=== PATIENT | male | born 1980 | race Caucasian/White ===

== ENCOUNTER 2020-02-27 16:48 | Emergency (ER) | payer MEDICAID, SELFPAY ==
[2020-02-27 16:52] VITALS: BP 153/90; PULSE 70; TEMP 36; O2SAT 98
--- NOTE | 2020-02-27 17:00 | DI.RAD_ITS ---
EXAM: XR FINGER LT RING CLINICAL HISTORY: trauma, laceration TECHNIQUE: COMPARISON: No exams were available for comparison FINDINGS: Three views were obtained. No fracture is seen. IMPRESSION:
--- NOTE | 2020-02-27 17:17 | W.ED.GENAD ---
Discharge Plan Disposition Patient Disposition: HOME Condition: Stable Discharge Details Chief Complaint: Laceration Clinical Impression: Laceration Primary Care Provider: Cass Montano ED Provider: Astrid Aguilar Home Meds and New Rx's Prescriptions: No Action No Known Home Meds RF: 0 Discharge Instructions Instructions: Care For Your Stitches (ED), Laceration (ED) Additional Instructions: Please return immediately to the emergency department if you develop any new or worsening symptoms, if your condition does not improve as expected, or if you become otherwise concerned. It is extremely important that you call soon as possible to make an appointment to be seen in follow-up for this visit by your primary care doctor. You will need to have your stitches removed in 10 days. Referrals: Cass Montano, TRACTOR CRANE OPERATOR [Primary Care Provider] - Discharge Data Discharge Date/Time-TO BE ENTERED AT DEPARTURE: 02/27/20 18:35 Medical Decision Making Henry Aviles is a 39 y/o man who presented to the emergency department with laceration to the left 4th digit. On exam Pt is well and non-toxic appearing. No exposed bone or tendon, flexion and extension intact. Plan for xray for r/o bony injury/FB, laceration repair, tetanus (last tetanus > 5 yrs ago, will update. xray okay. Laceration repaired with 4 sutures without issue, please see procedure note. Finger splint placed. I had a lengthy discussion with Patient regarding return to emergency department precautions, home care, and importance of outpatient follow-up. Pt verbalizes understanding of the plan and is amenable. Patient discharged to home with clear plan for outpatient follow-up. All questions were answered. Disposition decision was made weighing the risks and benefits of hospitalization versus outpatient treatment, the risk for further decompensation, and the patient's wishes. Medical Records Medical records reviewed: Yes I reviewed the patient's medical records. HPI General Mode of arrival: ambulatory. Date/Time Provider Initiated Documentation: 02/27/20 16:56. Limitations to Documentation: no limitations. Information obtained by: patient, RN notes reviewed and old records reviewed. HPI Narrative: Henry Aviles is a 39 y/o man without reported history of major medical problems presenting to the emergency department laceration. Patient reports that several hours ago he was at work when he cut his left fourth digit on a piece of sheet metal. Patient reports that laceration was deep and he could see exposed bone. Patient reports that wound seems to have closed somewhat since the initial injury. Patient denies any other pain or injury. Denies numbness or weakness of the finger. No recent illness. Related Data Home Medications Medication Instructions Recorded Confirmed Unknown [No Known Home Meds] 02/27/20 02/27/20 Allergies Allergy/AdvReac Type Severity Reaction Status Date / Time No Known Allergies Allergy Verified 02/27/20 16:56 General Stated Complaint: Laceration DION: 4 Review of Systems Narrative: Constitutional: denies fevers Eyes: denies eye pain ENT: denies ear pain, dental pain, sore throat Cardiovascular: denies chest pain Respiratory: denies cough GI: denies abdominal pain, vomiting : denies flank pain MSK: denies back pain, neck pain, arthralgias Skin: denies rash, reports finger wound Neuro: denies headaches, numbness, weakness [facility] Social History Smoking/Tobacco Use Status: Current-Occasional Tobacco: How many years used: 1 Quit status: has quit before Second Hand Exposure: Yes Counseling given: counseling >3 minutes Alcohol Intake: current Alcohol Intake frequency: 0-2 drinks per day Drug use: Occasionally Substance use type: marijuana Household members: spouse and children Housing: house Do you need help understanding health information?: Never Pets and animals: Yes Pets and animals: dog(s) Sexually active: Yes Do you think of yourself as: straight/heterosexual Current gender identity: male What is your relationship status?: How often do you talk on the phone with friends or family?: three or more times per week How often do you get together with friends or relatives?: once per week How often do you attend spiritism or rastafari services?: 4 or more times per year Do you belong to any clubs or organized social groups?: no Panel score (0-1 are the most socially isolated patients): 3 What type of physical activity do you participate in: yoga Duration: 15-30 minutes/day Frequency: daily Shital/Jain: Hoahaoism Seatbelt use: always Helmet use: Yes Helmet use: always 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 Left 4th digit with 2cm laceration dorsally over PIP, depth appears moderate, no bleeding, no exposed bone or tendon, brisk cap refill, extension/flexion intact, normal sensation. Radial pulses intact and symmetric. Minimal TTP over PIP. Left hand with otherwise normal inspection. Psych: normal mood, normal affect, normal behavior Course Vital Signs Vital signs: Vital Signs Temperature 36.0 C L 02/27/20 16:52 Pulse 70 02/27/20 16:52 Blood Pressure 153/90 H 02/27/20 16:52 Pulse Oximetry 98 02/27/20 16:52 Temperature 36.0 C L 02/27/20 16:52 Temperature Source Temporal Artery Scan 02/27/20 16:52 Pulse 70 02/27/20 16:52 Respiratory Effort Non-Labored 02/27/20 16:55 Blood Pressure 153/90 H 02/27/20 16:52 Blood Pressure Position Sitting 02/27/20 16:52 Pulse Oximetry 98 02/27/20 16:52 Oxygen Delivery Method Room Air 02/27/20 16:52 Oxygen Flow Rate 0 02/27/20 16:52 Pain Level 3 02/27/20 17:01 Procedures Laceration Laceration 1: Site: hand Side (If applicable): left Size (cm): 2 Description: linear Depth: simple, single layer Local Anesthetic: other anesthetic (nerve block) Pre-repair: irrigated extensively Skin layer closed with: nylon Size (cm): 4-0 Number of sutures: 4 Technique: simple, interrupted Nerve Block Nerve Block 1: Local Anesthetic: Lidocaine 1% Amount of anesthesia used (mL): 2 Side: left Nerve Blocks: digital Procedure Successful: Yes Patient Tolerated Procedure: well and no complications Complications: none
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
[2020-02-27] MEDS: Bacitracin 1 PACKET (18:12)
== END 2020-02-27 18:35 | disposition home or self-care (01) ==
PROVIDERS: Emergency Provider Student in an Organized Health Care Education/Training Program; PCP Nurse Practitioner
DX: S61.215A Laceration without foreign body of left ring finger without damage to nail, initial encounter (principal); W26.8XXA Contact with other sharp object(s), not elsewhere classified, initial encounter; Y99.0 Civilian activity done for income or pay
CPT/HCPCS: 12001; 90471; 99283; 73140; 99281

== ENCOUNTER 2020-05-24 13:17 | Outpatient (REF) | payer MEDICAID, SELFPAY ==
[2020-05-24 13:59] LABS: HCT 49.1 % (40.0-50.0); HGB 16.9 g/dL (13.5-17.5); MCHC 34.4 % (32.0-36.0); MPV 11.9 fL (8.0-11.0); Platelet Count 178 10^3/uL (130-400); RBC 5.28 10^6/uL (4.36-5.78); RDW 11.6 % (11.8-14.1); RDW-SD 39.8 fL; WBC 5.07 10^3/uL (4.4-10.8)
[2020-05-24 14:03] LABS: Bilirubin Negative (Negative); Blood Negative (Negative); Clarity Clear (Clear); Glucose Negative (Negative); Ketones Negative (Negative); Leukocyte Esterase Negative (Negative); Nitrite Negative (Negative); Specific Gravity 1.015 (1.005-1.025); Urobilinogen 0.2 EU/dL (Up TO 0.2)
[2020-05-24 14:15] LABS: Hemoglobin A1C 5.1 % (<5.7)
[2020-05-24 19:53] LABS: ALT 43 U/L (16-63); AST 19 U/L (15-37); Albumin 4.7 g/dL (3.4-5.0); Alkaline Phosphatase 80 U/L (46-116); Anion Gap 5.6 mmol/L (3-11); BUN 11 mg/dL (7-18); Bilirubin, Total 0.6 mg/dL (0.2-1.0); CO2 28.4 mmol/L (21.0-32.0); CREATININE 0.89 mg/dL (0.70-1.30); Calcium 9.4 mg/dL (8.5-10.1); Calculated LDL 154 mg/dL (<100); Chloride 106 mmol/L (98-107); Cholesterol 224 mg/dL (<200); Glucose 98 mg/dL (74-106); HDL Cholesterol 56 mg/dL (40-60); Potassium 4.7 mmol/L (3.5-5.1); Sodium 140 mmol/L (136-145); Total Protein 7.9 g/dL (6.4-8.2); Triglyceride 73 mg/dL (<150)
[2020-05-28 09:51] LABS: PSA, Screening 0.4 ng/mL (0.0-2.5)
[2020-05-28 14:23] LABS: Chlamydia Result Negative (Negative); GC Result Negative (Negative)
== END 2020-05-24 13:37 ==
LOC: LBN 13:17
PROVIDERS: PCP Nurse Practitioner; Visit Provider Nurse Practitioner Family
DX: R39.198 Other difficulties with micturition (principal); Z13.1 Encounter for screening for diabetes mellitus
CPT/HCPCS: 80053; 80061; 84153; 85027; 87491; 87591; 81003; 83036

== ENCOUNTER 2020-05-26 05:51 | Emergency (ER) | payer MEDICAID, SELFPAY ==
[2020-05-26 05:53] VITALS: BP 158/91; PULSE 78; RESP 16; TEMP 36.3; O2SAT 99
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
== END 2020-05-26 07:22 | disposition home or self-care (01) ==
PROVIDERS: Emergency Provider Emergency Medicine; PCP Nurse Practitioner
DX: S22.32XA Fracture of one rib, left side, initial encounter for closed fracture (principal); V18.0XXA Pedal cycle driver injured in noncollision transport accident in nontraffic accident, initial encounter; Y93.55 Activity, bike riding
CPT/HCPCS: 99283; 71046; 71100

== ENCOUNTER 2020-06-11 17:18 | Emergency (ER) | payer MEDICAID, SELFPAY ==
[2020-06-11 17:25] VITALS: BP 159/99; PULSE 84; RESP 16; TEMP 36.7; O2SAT 98
--- NOTE | 2020-06-11 17:30 | DI.CT_ITS ---
EXAM: CT HEAD CERVICAL SPINE WO COMPARISON: No exams were available for comparison FINDINGS: CT examination of the cervical spine was performed without contrast administration. There is no evide nce of acute cervical spine fracture or dislocation. Tracheolaryngeal structures appear intact. No ce rvical mass or adenopathy. Intervertebral disc spaces are well maintained. Noncontrast cranial CT was performed. Ventricular system is normal in appearance. No evidence of acut e intracranial hemorrhage, mass effect, or midline shift. No calvarial fracture. The orbital and temp oral bone structures appear intact. IMPRESSION: No evidence of acute cervical spine injury. No evidence of acute intracranial injury. RADIATION DOSE DELIVERED: 1,477.78mGy.cm Total DLP 1,477.78mGy.cm Total DLP DATA REPOSITORY: All CT scans at this facility are submitted to the National Radiology Data Registry (NRDR) Dose Index Registry (DIR) with the [employer] (ACR). RADIATION OPTIMIZATION: All CT scans at this facility use at least one of these dose optimization te chniques: automated exposure control; mA and/or kV adjustment per patient size (includes targeted exa ms where dose is matched to clinical indication); or iterative reconstruction.
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
[2020-06-11] MEDS: Ibuprofen 600 MG TAB PO (19:34)
[2020-06-11] MEDS: Acetaminophen 500 MG TAB 1000 MG PO (19:34)
[2020-06-11 19:35] VITALS: BP 139/87; PULSE 75; RESP 16; O2SAT 99
[2020-06-11] MEDS: Lidocaine 5% Patch 1 PATCH TP (19:37)
== END 2020-06-11 19:40 | disposition home or self-care (01) ==
PROVIDERS: Emergency Provider Physician Assistant; PCP Nurse Practitioner
DX: S06.0X0A Concussion without loss of consciousness, initial encounter (principal); S16.1XXA Strain of muscle, fascia and tendon at neck level, initial encounter; W20.8XXA Other cause of strike by thrown, projected or falling object, initial encounter; Y99.0 Civilian activity done for income or pay; R51 Headache
CPT/HCPCS: 99284; 70450; 72125; 99285; L0172

== ENCOUNTER 2021-04-18 15:02 | Emergency (ER) | payer MEDICAID, SELFPAY ==
[2021-04-18 15:13] VITALS: BP 148/93; PULSE 66; RESP 18; TEMP 37.3; O2SAT 98
--- NOTE | 2021-04-18 15:30 | DI.RAD_ITS ---
Exam(s) XR WRIST RT COMPLETE EXAM: XR WRIST RT COMPLETE CLINICAL HISTORY: R wrist pain after fall. TECHNIQUE: 2D digital imaging was performed. COMPARISON: No exams were available for comparison FINDINGS: BONES: No acute fracture is present. No bony destructive lesion is seen. JOINTS: The carpal bones are normally aligned. SOFT TISSUE: No foreign body IMPRESSION: Unremarkable radiographs of the right wrist. DATA REPOSITORY: RADIATION DOSE DELIVERED:
--- NOTE | 2021-04-18 15:30 | DI.CT_ITS ---
Exam(s) CT HEAD CERVICAL SPINE WO EXAM: CT HEAD CERVICAL SPINE WO CLINICAL HISTORY: 30 ft fall, R face pain. TECHNIQUE: Imaging Protocol: Axial computed tomography images with coronal and sagittal reformatted images were created and reviewed COMPARISON: CT CT HEAD CERVICAL SPINE WO from 06/11/2020 FINDINGS: Head CT Ventricles and Extra axial spaces: Normal in size and morphology for the patient's age. Hemorrhage: None. Cerebral parenchyma: Normal. Midline shift: None. Brainstem/Cerebellum: Normal. Calvarium: Normal. Visualized Paranasal sinuses/Mastoids: Minimal mucous retention floor of left maxillary sinus.. Soft tissue laceration superior to right orbit. No evidence of fracture. Cervical Spine CT BONES: Vertebral body heights are maintained. Alignment is normal. There is no evidence of acute frac ture. paraspinal hematoma. The airway appears intact. No pneumothorax is seen at the lung apices. IMPRESSION: Head CT: Right supraorbital soft tissue laceration. No acute intracranial abnormality. C-spine CT: no acute abnormality. RADIATION DOSE DELIVERED: 1,561.97mGy.cm Total DLP DATA REPOSITORY: All CT scans at this facility are submitted to the National Radiology Data Registry (NRDR) Dose Index Registry (DIR) with the [employer] (A[employer]). RADIATION OPTIMIZATION: All CT scans at this facility use at least one of these dose optimization te chniques: automated exposure control; mA and/or kV adjustment per patient size (includes targeted exa ms where dose is matched to clinical indication); or iterative reconstruction.
--- NOTE | 2021-04-18 15:30 | DI.CT_ITS ---
Exam(s) CT CHEST/ABD/PEL W EXAM: CT CHEST/ABD/PEL W CLINICAL HISTORY: 30 ft fall, R face pain. TECHNIQUE: Imaging Protocol: Axial computed tomography images with coronal and sagittal reformatted images were created and reviewed CONTRAST MATERIAL: Intravenous: Omnipaque 350 Contrast volume:100 ml Oral: no COMPARISON: CT CT HEAD CERVICAL SPINE WO from 06/11/2020 FINDINGS: CHEST: Thyroid: Circumscribed small bilateral nodules. Tracheobronchial tree: Patent where visualized. Mediastinum and Shauna: No dominant adenopathy or fluid collection. Pulmonary parenchyma: No consolidation or dominant measurable mass. Pleura: No effusion or pneumothorax. Lymph nodes: Within normal limits. Aorta: Thoracic portion non-dilated. Heart: Normal size. Bones: Unremarkable for age. No acute rib or spine fracture. No lytic or blastic lesions. ABDOMEN: Liver: Normal density. No measurable mass. Gallbladder and biliary tract: No radiodense calculus or dilation. Pancreas: Normal density, no abnormal calcifications or inflammatory process. Spleen: Normal. Kidneys: Normal size, contour and axis. No radiodense stones or obstructive uropathy. No masses seen. Adrenal glands: No masses seen. Aorta: Abdominal portion non-dilated. Lymph nodes: Within normal limits. Soft tissues: Unremarkable. PELVIS: Bladder: Symmetric distention, no gross wall thickening. Bowel: No obstruction or bowel wall thickening. Peritoneal cavity: No ascites, collection or mesenteric inflammatory response. Bones: Degenerative changes lower lumbar spine.. Reproductive organs: Within normal limits. IMPRESSION: No acute abnormality in the chest abdomen or pelvis.. RADIATION DOSE DELIVERED: 1,702.01mGy.cm Total DLP DATA REPOSITORY: All CT scans at this facility are submitted to the National Radiology Data Registry (NRDR) Dose Index Registry (DIR) with the [employer] (ACR). RADIATION OPTIMIZATION: All CT scans at this facility use at least one of these dose optimization te chniques: automated exposure control; mA and/or kV adjustment per patient size (includes targeted exa ms where dose is matched to clinical indication); or iterative reconstruction.
--- NOTE | 2021-04-18 15:40 | ED.GENADUL_ITS ---
Discharge Plan Disposition Patient Disposition: HOME Condition: Improving Discharge Details Clinical Impression: Laceration of face, Multiple contusions Primary Care Provider: Cass Montano ED Provider: Yosvany Epstein Home Meds and New Rx's Prescriptions: Continued lidocaine 4 % adhesive patch,medicated 1 patch TP DAILY PRN (Reason: pain) Qty: 30 RF: 4 Discharge Instructions Instructions: Contusion in Adults (ED), Facial Laceration (ED) Additional Instructions: Home to rest this evening. You will likely have increased muscular soreness over the next 1 to 2 days time. Sutures will need to be removed in 7 to 10 days time. Please return for suture removal. As discussed, I will call you tomorrow with the final reading of your radiology reports. Apply ice to areas to reduce discomfort. Bed rest for the next 24 hours. May apply bacitracin or triple antibiotic to areas of abrasion. Return to the ER for any acute concerns. Discharge Data Discharge Date/Time-TO BE ENTERED AT DEPARTURE: 04/18/21 20:30 Medical Decision Making This is a 40-year-old male who was working on a ladder on the side of the home proximally 20 to 30 feet in the air. Patient's ladder was knocked over by a north on the job site he fell towards his left riding the ladder to the ground, striking his right face on another ladder during the fall. He denies a loss of consciousness. He complains of right face and head pain. No neck/back/chest/abdomen pain. States he feels like I have a ton of adre naline. Patient's vital signs are stable, his tetanus is up-to-date, he clearly suffered high kinetic energy mechanism of injury. He is placed in a c-collar, IV access established, he is referred for CT images and a radiograph of the right wrist. Radiographs of the right wrist unremarkable. CT scan of the head and cervical spine without acute findings. CT of the chest, abdomen, pelvis reveals probable nondisplaced fracture of the lateral left sixth rib. Patient is nontender here and states that he has had previous rib fracture. Additionally there is ill- defined linear hypoattenuation of the posterior spleen which may be compatible with small grade 1 laceration versus streak artifact. No evidence of intra- abdominal hemorrhage or hematoma. No other visceral injury. Again, patient nontender in the left upper quadrant and left abdomen. He is hemodynamically stable and has a hematocrit of 42. Patient's right supraorbital laceration repaired with nylon suture. He is mobilized out of cervical spine precautions, ambulatory, feeling improved but with overall muscular soreness. Patient and his and I participated in shared decision making at the bedside. I feel that a subtle spleen injury is unlikely, but we will have the patient rest at home on bedrest tonight and I will call him with formal/final radiology reports tomorrow. (addendum: negative overreads of CT imaging, see reports) Patient referred back for x-ray of the right hand and proximal tibia after developing increased pain in those areas. No acute fracture appreciated. Patient appropriate for discharge to home. HPI General Mode of arrival: ambulatory . Date/Time Provider Initiated Documentation: 04/18/21 15:12 . Limitations to Documentation: no limitations . Information obtained by: patient . History of Present Illness 40 year old M presents to the emergency department with the chief complaint of Fall from ladder, described as moderate, Quality is described as dull and constant, and is localized to the head, face and right. Patient started experiencing this minute(s) and it has been constant. No relieving factors improve symptom(s), No exacerbating factors reported . Patient notes headaches; denies chest pain, nausea/vomiting, shortness of breath and syncope. Patient did receive the following treatments prior to arrival, none Related Data Home Medications Medication Instructions Recorded Confirmed lidocaine 4 % topical patch 1 patch TP DAILY PRN #30 each 05/24/20 04/18/21 Previous Rx's Medication Instructions Recorded lidocaine 4 % topical patch 1 patch TP DAILY PRN #30 each 05/24/20 Allergies Allergy/AdvReac Type Severity Reaction Status Date / Time environmental Allergy Uncoded 04/18/21 15:18 General Stated Complaint: Trauma DION: 2 Review of Systems Narrative: tetanus up-to-date as of February 2020. No loss of consciousness. No neck or back pain. Denies chest or belly pain. Primarily complains of right face pain. 8 systems reviewed and otherwise negative. [facility] Medical History History of bipolar disorder Low back pain Surgical History Status post arthroscopic knee surgery 1997- right knee Family History Mother Alcohol abuse Father Hypertension Alcohol abuse Sister No problems noted. Sister No problems noted. Son No problems noted. Son No problems noted. Daughter No problems noted. Daughter No problems noted. Maternal Grandfather , age 91 Bipolar 1 disorder Dementia Paternal Grandfather , age 91 Dementia Maternal Grandmother , age 91 Stroke Smoker Paternal Grandmother , age 91 Diabetes Social History Smoking/Tobacco Use Status: Current every day Tobacco Type: cigarettes Tobacco: How many years used: 18 Quit status: has quit before Second Hand Exposure: Yes Counseling given: counseling >3 minutes Smoking risk assessment performed?: Yes Alcohol Intake: current Alcohol Intake frequency: holidays/special occasions only Drug use: Occasionally Substance use type: marijuana Household members: spouse and children Housing: house Communication Needs: None Do you need help understanding health information?: Rarely Pets and animals: Yes Pets and animals: cat(s) and dog(s) Sexually active: Yes Do you think of yourself as: straight/heterosexual Current gender identity: male What is your relationship status?: How often do you talk on the phone with friends or family?: three or more times per week How often do you get together with friends or relatives?: once per week How often do you attend latter day or mandaen services?: 4 or more times per year Do you belong to any clubs or organized social groups?: no Panel score (0-1 are the most socially isolated patients): 3 What type of physical activity do you participate in: walking and yoga Duration: 60-90 minutes/day Frequency: daily Shital/Zoroastrianism: Anabaptist Seatbelt use: always Helmet use: Yes Helmet use: always Drive intox 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 Pleasant, well groomed, interactive. HEAD: Normocephalic, right superior orbital rim with stellate laceration. No facial bone instability or tenderness, no facial anesthesia ENT: Mucous membranes moist, oropharynx unremarkable, External ear exam unremarkable EYES: PERRL, EOMI NECK: Full ROM, no BECCA, no menigismus, nontender CHEST/RESP: Nontender, clear to auscultation bilateral, no wheeze/rhonchi/rales CARDIOVASCULAR: RRR, no murmur, rub vanessa. 2+ Rad pulse bilateral Back: Nontender, no step-off or deformity. ABDOMEN: Soft, nontender, no mass. +Bowel sounds EXT: Full ROM, no edema, no rash. Abrasions to both legs and arms. The right distal radius is tender to palpation. Neuro: Grossly normal neurologic exam, conversant, interactive. Psych: Speech fluent, thoughts congruent, affect normal Course Vital Signs Vital signs: Vital Signs Temperature 37.3 C 04/18/21 15:13 Pulse 66 04/18/21 15:13 Respiratory Rate 18 04/18/21 15:13 Blood Pressure 148/93 H 04/18/21 15:13 Pulse Oximetry 98 04/18/21 15:13 Temperature 37.3 C 04/18/21 15:13 Temperature Source Temporal Artery Scan 04/18/21 15:13 Pulse 66 04/18/21 15:13 Respiratory Rate 18 04/18/21 15:13 Respiratory Effort Non-Labored 04/18/21 15:19 Blood Pressure 148/93 H 04/18/21 15:13 Blood Pressure Position Sitting 04/18/21 15:13 Pulse Oximetry 98 04/18/21 15:13 Oxygen Delivery Method Room Air 04/18/21 15:13 Oxygen Flow Rate 0 04/18/21 15:13 Pain Level 6 04/18/21 15:13 Procedures Laceration Laceration 1: Site: face Side (If applicable): right Description: stellate Depth: involves muscle layer Local Anesthetic: Lidocaine 1% Amount of anesthesia used (mL): 3 Pre-repair: wound explored, irrigated extensively and deep structures intact Skin layer closed with: nylon Size (cm): 4-0 Number of sutures: 8 Technique: simple, interrupted
[2021-04-18 16:12] LABS: Abs Immature Grans 0.03 10^3/uL (0.0-0.06); Absolute Basophil Count 0.03 10^3/uL (0.0-0.2); Absolute Eosinophil Count 0.11 10^3/uL (0.0-0.7); Absolute Monocyte Count 0.38 10^3/uL (0.1-0.8); Absolute Neutrophil Count 5.36 10^3/uL (1.2-6.7); Basophils % 0.4; Eosinophils % 1.4; HCT 42.2 % (40.0-50.0); HGB 14.7 g/dL (13.5-17.5); Immature Grans % 0.4; Lymphocytes % 22.3; MCH 32.3 pg (27.0-33.0); MCHC 34.8 % (32.0-36.0); MCV 92.7 fL (80-95); MPV 11.4 fL (8.0-11.0); Neutrophils % 70.5; Nucleated RBC 0 %; Platelet Count 135 10^3/uL (130-400); RBC 4.55 10^6/uL (4.36-5.78); RDW 11.8 % (11.8-14.1); RDW-SD 40.4 fL; WBC 7.61 10^3/uL (4.4-10.8)
[2021-04-18 16:25] LABS: ALT 22 U/L (16-63); AST 19 U/L (15-37); Alkaline Phosphatase 75 U/L (46-116); Anion Gap 8.7 mmol/L (3-11); BUN 14 mg/dL (7-18); Bilirubin, Total 0.3 mg/dL (0.2-1.0); CO2 25.3 mmol/L (21.0-32.0); CREATININE 1.1 mg/dL (0.70-1.30); Calcium 8.4 mg/dL (8.5-10.1); Chloride 104 mmol/L (98-107); Glucose 92 mg/dL (74-106); Potassium 3.8 mmol/L (3.5-5.1); Sodium 138 mmol/L (136-145); Total Protein 7.1 g/dL (6.4-8.2)
[2021-04-18] MEDS: Normal Saline 1,000 ML 150 ML IV (16:30)
[2021-04-18] MEDS: Normal Saline - Diluent 50 ML VIAL IV (17:07)
[2021-04-18] MEDS: Normal Saline Flush 10 ML SYR IVP (17:07)
--- NOTE | 2021-04-18 17:16 | DI.VRAD_ITS ---
PROCEDURE INFORMATION: Exam: XR Right Wrist Exam date and time: 04/18/2021 3:40 PM Age: 40 years old Clinical indication: Injury or trauma; Fall; Work related; Blunt trauma (contusions or hematomas); Wrist; Right; Injury date: 04/17/21 TECHNIQUE: Imaging protocol: XR Right wrist. Views: 3 or more views. COMPARISON: No relevant prior studies available. FINDINGS: Bones/joints: Normal. Soft tissues: Normal. IMPRESSION: No acute findings. Dictated and Authenticated by: Ace Padilla MD. Ordering:DAWNA Bar MD
--- NOTE | 2021-04-18 17:18 | DI.VRAD_ITS ---
PROCEDURE INFORMATION: Exam: CT Head Without Contrast Exam date and time: 04/18/2021 3:40 PM Age: 40 years old Clinical indication: Injury or trauma; Fall TECHNIQUE: Imaging protocol: Computed tomography of the head without contrast. Total images: 2152 COMPARISON: CT HEAD CERVICAL SPINE WO 06/11/2020 6:01 PM FINDINGS: Brain: No intra or extra axial bleed. No edema or mass effect. The central smith structures and cortical ribbon are maintained. Cerebral ventricles: No hydrocephalus. Basal cisterns are patent. Paranasal sinuses: Minimal mucosal thickening in the left maxillary sinus. Mastoid air cells: Mastoid air cells are clear. Orbital cavity: Unremarkable. Bones/joints: No significant bony abnormality. No fracture. Soft tissues: Unremarkable. IMPRESSION: No acute intracranial abnormality. No bleed. PROCEDURE INFORMATION: Exam: CT Cervical Spine Without Contrast Exam date and time: 04/18/2021 3:40 PM Age: 40 years old Clinical indication: Injury or trauma; Fall TECHNIQUE: Imaging protocol: Computed tomography images of the cervical spine without contrast. COMPARISON: CT HEAD CERVICAL SPINE WO 06/11/2020 6:01 PM FINDINGS: Bones/joints: No acute fracture. Normal alignment. No subluxation. Discs/Spinal canal/Neural foramina: No significant disc protrusion. No severe spinal canal stenosis. No significant neural foraminal narrowing. Epidural space: No gross epidural hemorrhage. Prevertebral Space: No prevertebral soft tissue swelling. Lungs: No apical pneumothorax. Soft tissues: Unremarkable. IMPRESSION: No acute findings. No fracture. Dictated and Authenticated by: Yosvany Ragsdale MD. Ordering:DAWNA Bar MD
--- NOTE | 2021-04-18 17:32 | DI.VRAD_ITS ---
PROCEDURE INFORMATION: Exam: CT Chest With Contrast; Diagnostic Exam date and time: 04/18/2021 3:40 PM Age: 40 years old Clinical indication: Injury or trauma; Fall TECHNIQUE: Imaging protocol: Diagnostic computed tomography of the chest with contrast. COMPARISON: CR XR RIBS LT W PA LAT CHEST 05/26/2020 6:21 AM FINDINGS: Thyroid: Bilateral hypodense thyroid nodules measuring 1 cm on the right and 8 mm on the left. Lungs: Unremarkable. No consolidation. No masses. Pleural spaces: Unremarkable. No pneumothorax. No pleural effusion. Heart: Unremarkable. No cardiomegaly. No pericardial effusion. Aorta: Unremarkable. No aortic aneurysm. Lymph nodes: Unremarkable. No enlarged lymph nodes. Bones/joints: Unremarkable. No acute fracture. Soft tissues: Unremarkable. IMPRESSION: 1. No evidence of acute cardiopulmonary process or traumatic injury. 2. Bilateral hypodense thyroid nodules measuring 1 cm on the right and 8 mm on the left. Further evaluation with ultrasound may be performed. PROCEDURE INFORMATION: Exam: CT Abdomen And Pelvis With Contrast Exam date and time: 04/18/2021 3:40 PM Age: 40 years old Clinical indication: Injury or trauma; Fall TECHNIQUE: Imaging protocol: Computed tomography of the abdomen and pelvis with contrast. COMPARISON: CR XR RIBS LT W PA LAT CHEST 05/26/2020 6:21 AM FINDINGS: Liver: Normal. No mass. Gallbladder and bile ducts: Normal. No calcified stones. No ductal dilation. Pancreas: Normal. No ductal dilation. Spleen: Ill-defined hypoattenuation within the posterior spleen involving the capsule raises suspicion for a very small laceration/contusion (series 4, image 64). Adrenal glands: Normal. No mass. Kidneys and ureters: Right renal 8 mm cyst within the midpole of the kidney. Otherwise the kidneys are unremarkable. Stomach and bowel: Unremarkable. No obstruction. No mucosal thickening. Appendix: No evidence of appendicitis. Intraperitoneal space: Unremarkable. No free air. No significant fluid collection. Vasculature: Unremarkable. No abdominal aortic aneurysm. Lymph nodes: Unremarkable. No enlarged lymph nodes. Urinary bladder: Unremarkable as visualized. Reproductive: Unremarkable as visualized. Bones/joints: Probable nondisplaced fracture of the lateral left 6th rib (series 8, image 21). Moderate degenerative disc disease at L4-L5 and L5-S1 with diffuse posterior disc bulging causing bilateral neural foraminal stenosis and no significant canal stenosis. No acute fracture. Soft tissues: Unremarkable. IMPRESSION: 1. Ill-defined linear hypoattenuation of the posterior spleen may be compatible with a very small grade 1 laceration/contusion versus streak artifact. There is no evidence of intra-abdominal hemorrhage or hematoma. 2. Otherwise unremarkable evaluation of the intra-abdominal and pelvic organs. 3. Probable nondisplaced fracture of the lateral left 6th rib. 4. Moderate degenerative disc disease at L4-L5 and L5-S1 with diffuse posterior disc bulging causing bilateral neural foraminal stenosis and no significant canal stenosis. Dictated and Authenticated by: Ace Padilla MD. Ordering:DAWNA Bar MD
[2021-04-18] MEDS: HYDROmorphone 2 MG/ML VIAL 0.5 MG IVP (18:03)
--- NOTE | 2021-04-18 18:45 | DI.RAD_ITS ---
Exam(s) XR HAND RT COMPLETE EXAM: XR HAND RT COMPLETE CLINICAL HISTORY: dorsal pain after fall. TECHNIQUE: 2D digital imaging was performed. COMPARISON: CR,XR XR FINGER LT RING from 02/27/2020 FINDINGS: BONES: No acute fracture is present. No bony destructive lesion is seen. JOINTS: No dislocation present. SOFT TISSUE: Normal. IMPRESSION: Unremarkable radiographs of the right hand. DATA REPOSITORY: RADIATION DOSE DELIVERED:
--- NOTE | 2021-04-18 18:45 | DI.RAD_ITS ---
Exam(s) XR TIB/FIB RT EXAM: XR TIB/FIB RT CLINICAL HISTORY: proximal pain and swelling. TECHNIQUE: 2D digital imaging was performed. COMPARISON: No exams were available for comparison FINDINGS: BONES: No acute fracture is present. No bony destructive lesion is seen. Visualized portion of knee a nd ankle joints are unremarkable. SOFT TISSUE: Normal. IMPRESSION: Unremarkable radiographs of the right tibia and fibula. DATA REPOSITORY: RADIATION DOSE DELIVERED:
--- NOTE | 2021-04-18 20:09 | DI.VRAD_ITS ---
PROCEDURE INFORMATION: Exam: XR Right Hand Exam date and time: 04/18/2021 6:52 PM Age: 40 years old Clinical indication: Other: Dorsal pain after fall TECHNIQUE: Imaging protocol: XR Right hand. Views: 3 or more views. COMPARISON: CR XR WRIST RT COMPLETE 04/18/2021 5:06 PM FINDINGS: Bones/joints: Normal. Soft tissues: Normal. IMPRESSION: No acute findings. Dictated and Authenticated by: Ace Padilla MD. Ordering:DAWNA Bar MD
--- NOTE | 2021-04-18 20:10 | DI.VRAD_ITS ---
PROCEDURE INFORMATION: Exam: XR Right Tibia and Fibula Exam date and time: 04/18/2021 6:52 PM Age: 40 years old Clinical indication: Other: Proximal pain and swelling TECHNIQUE: Imaging protocol: XR Right tibia and fibula. Views: 2 views. COMPARISON: No relevant prior studies available. FINDINGS: Bones/joints: Sclerotic focus within the metaphysis of the proximal tibia most likely compatible with a bone island. No acute fracture or dislocation. Soft tissues: Normal. IMPRESSION: No evidence of acute fracture or dislocation. Dictated and Authenticated by: Ace Padilla MD. Ordering:DAWNA Bar MD
[2021-04-18 20:15] VITALS: BP 139/77; PULSE 66; RESP 18; TEMP 37.3; O2SAT 98
--- NOTE | 2021-04-19 09:56 | NUR.NOTE ---
Nursing Note: Referral given to care management for mental health follow up 04/19/21 libl
== END 2021-04-18 20:30 | disposition home or self-care (01) ==
PROVIDERS: Emergency Provider Emergency Medicine; PCP Nurse Practitioner
DX: S01.81XA Laceration without foreign body of other part of head, initial encounter (principal); S60.211A Contusion of right wrist, initial encounter; R51.9 Headache, unspecified; S60.221A Contusion of right hand, initial encounter; S80.11XA Contusion of right lower leg, initial encounter; W11.XXXA Fall on and from ladder, initial encounter; Y99.0 Civilian activity done for income or pay
CPT/HCPCS: 12011; 36415; 74177; 80053; 96361; 96374; 99285; 70450; 71260; 72125; 73110; 73130; 73590; 85025; 99284

== ENCOUNTER 2021-05-31 04:39 | Outpatient (CLI) | payer MEDICAID, SELFPAY ==
--- NOTE | 2021-05-31 06:30 | DI.US_ITS ---
Exam(s) US THYROID EXAM: US THYROID CLINICAL HISTORY: thyroid nodule,E04.1 TECHNIQUE: Ultrasound performed using standard protocol. COMPARISON: No exams were available for comparison FINDINGS: Thyroid ultrasound was performed according to the usual protocol. Right thyroid lobe measures 61 x 1 9 x 24 millimeters and left lobe measures 58 x 14 x 19 millimeters. The isthmus is about 2 millimete rs in thickness. There are multiple small thyroid lesions, most of which are cysts cystic and many of which contain ty pical appearance of colloid related, comet tail calcifications. There is a solid lesion of the left thyroid lobe measuring 6 7 millimeters in diameter which is hypoe choic, this is a TR 4 lesion, no follow necessary due to size less than 1 cm. No other suspicious le sions identified. IMPRESSION: Low risk appearance multiple thyroid nodules by TI-RADS classification, no follow up recommended. DATA REPOSITORY:
== END 2021-05-31 04:59 ==
PROVIDERS: PCP Nurse Practitioner; Visit Provider Nurse Practitioner
DX: E04.2 Nontoxic multinodular goiter (principal)
CPT/HCPCS: 76536

== ENCOUNTER 2022-11-10 17:48 | Emergency (ER) | payer MEDICAID, SELFPAY ==
[2022-11-10 17:52] VITALS: BP 144/102; PULSE 71; RESP 16; TEMP 36.8; O2SAT 99
[2022-11-10 18:35] LABS: Abs Immature Grans 0.01 10^3/uL (0.0-0.06); Absolute Basophil Count 0.05 10^3/uL (0.0-0.2); Absolute Eosinophil Count 0.64 10^3/uL (0.0-0.7); Absolute Lymphocyte Count 2.15 10^3/uL (1.2-3.4); Absolute Monocyte Count 0.44 10^3/uL (0.1-0.8); Absolute Neutrophil Count 5.02 10^3/uL (1.2-6.7); Basophils % 0.6; Eosinophils % 7.7; HCT 45.7 % (40.0-50.0); HGB 16.1 g/dL (13.5-17.5); Immature Grans % 0.1; Lymphocytes % 25.9; MCH 32.1 pg (27.0-33.0); MCHC 35.2 % (32.0-36.0); MCV 91 fL (80-95); Monocytes % 5.3; Neutrophils % 60.4; Platelet Count 149 10^3/uL (130-400); RBC 5.01 10^6/uL (4.36-5.78); RDW 11.5 % (11.8-14.1); RDW-SD 38.6 fL; WBC 8.31 10^3/uL (4.4-10.8)
[2022-11-10 18:54] LABS: ALT 26 U/L (16-63); AST 20 U/L (15-37); Albumin 4.2 g/dL (3.4-5.0); Alkaline Phosphatase 76 U/L (46-116); Anion Gap 7.5 mmol/L (3-11); BUN 11 mg/dL (7-18); Bilirubin, Total 0.8 mg/dL (0.2-1.0); CO2 27.5 mmol/L (21.0-32.0); Calcium 9.1 mg/dL (8.5-10.1); Chloride 103 mmol/L (98-107); Estimated GFR 97.58 (mL/min/1.73m2); Glucose 101 mg/dL (74-106); Lipase 22 U/L (16-77); Potassium 3.6 mmol/L (3.5-5.1); Sodium 138 mmol/L (136-145); Total Protein 7.3 g/dL (6.4-8.2)
--- NOTE | 2022-11-10 19:00 | DI.CT_ITS ---
Exam(s) CT ABDOMEN PELVIS W EXAM: CT ABDOMEN PELVIS W CLINICAL HISTORY: epigastric and LLQ pain, r/o gastritis. TECHNIQUE: Imaging Protocol: Axial computed tomography images with coronal and sagittal reformatted images were created and reviewed CONTRAST MATERIAL: Intravenous: Omnipaque-350 100cc Oral: None COMPARISON: CT CT CHEST/ABD/PEL W from 04/18/2021 FINDINGS: VISUALIZED LUNG BASES: Benign increased markings in the lateral aspect of the right middle lobe are u nchanged from March 2021.. No new nodules in the lung bases. No pleural effusions. ABDOMEN: Images degraded by motion artifact. There is no ascites. LIVER: There are no focal hepatic lesions evident. No obvious dilated intrahepatic ducts. GALLBLADDER/BILIARY: No obvious gallbladder pathology. CBD is not dilated. PANCREAS: No evidence of pancreatic mass nor dilatation of the pancreatic duct. SPLEEN: Spleen is not enlarged. No obvious intrasplenic lesions. Splenic and portal veins are paten t. ADRENALS: There are no significant adrenal masses. KIDNEYS:No cysts evident. No solid renal masses. No calculi nor hydronephrosis.. ABDOMINAL AORTA: Abdominal aorta is not enlarged. LYMPH NODES:There is no retroperitoneal nor paraaortic adenopathy. ABDOMINAL WALL: No evidence of significant anterior abdominal wall nor inguinal hernia. GI: There is no evidence of bowel obstruction, free air, nor abscess. PELVIS: GI: No evidence of appendicitis.No evidence of sigmoid diverticulitis. LYMPH NODES: There is no intrapelvic nor inguinal adenopathy. REPRODUCTIVE: Prostate size normal. Vasectomy clips evident. URINARY BLADDER: No calculi nor obvious masses evident OSSEOUS: No fractures and no significant osseous lesions. Moderate disc space narrowing at L5-S1 level noted. IMPRESSION: 1. Images are somewhat degraded by respiratory motion artifact. However, there is no obvious acute a bnormality evident in the abdomen and pelvis. 2. No bowel obstruction. No free air. No ascites. RADIATION DOSE DELIVERED: 1,395.17mGy.cm Total DLP DATA REPOSITORY: All CT scans at this facility are submitted to the National Radiology Data Registry (NRDR) Dose Index Registry (DIR) with the [employer] (A[employer]). RADIATION OPTIMIZATION: All CT scans at this facility use at least one of these dose optimization te chniques: automated exposure control; mA and/or kV adjustment per patient size (includes targeted exa ms where dose is matched to clinical indication); or iterative reconstruction.
--- NOTE | 2022-11-10 19:04 | W.ED.GENAD ---
Discharge Plan Disposition Patient Disposition: Home Condition: Stable Discharge Details Clinical Impression: Epigastric abdominal pain, GERD (gastroesophageal reflux disease) Primary Care Provider: Judie Waldron ED Provider: Yany Sarmiento Home Meds and New Rx's Prescriptions: New sucralfate [Carafate] 1 gram tablet 1 gm PO QACHS Qty: 14 0RF Continued olopatadine [Pataday Once Daily Relief] 0.2 % drops 1 drp ophthalmic (eye) DAILY pramoxine [Sarna Sensitive] 1 % lotion 1 applic topical BID Discharge Instructions Instructions: GERD (Gastroesophageal Reflux Disease) (ED), Epigastric Pain (ED) Additional Instructions: Your blood tests and imaging today are reassuring and show no evidence of acute concerning findings. Your CT scan today showed possible mild enteritis which is an inflammation of your bowel wall which can be related to a viral illness. Your symptoms may be secondary to GERD or gastroesophageal reflux disease. Common triggers of this include alcohol, smoking, caffeine, citrus foods, spicy foods, high fat or fried foods. Stress can contribute to worsening of these symptoms as well. Drink plenty of fluids and get plenty of rest. Start taking a daily [id number] Prilosec which can help decrease stomach acid production when eating. A prescription for Carafate which is a medication which can coat your stomach and improve pain has been sent electronically to your pharmacy. Take the Ativan as needed and directed for feelings of stress or anxiety. Follow-up with your primary care doctor in 1 week and for referral to general surgery for symptoms do not improve or worsen for consideration for upper endoscopy. Return to the emergency department with any worsening or new concerning symptoms. Referrals: Maxx Ellsworth MD [ [facility] STAFF PHYSICIAN] - Discharge Data Discharge Physician: Yany Sarmiento Medical Decision Making 1814 -- 41-year-old male presents for nausea, postprandial abdominal pain and change in bowel habits over the past week. Blood pressure moderately hypertensive at 144/102. Remainder vitals within normal limits. Patient appears anxious and tearful. His abdomen is soft but tender in the epigastrium and left lower quadrant. Presentation most likely appears consistent with GERD considering pain is worse postprandial and due to normal triggers of GERD such as caffeine, smoking. As he is also tender in the left lower quadrant, will obtain screening labs, CT abdomen and pelvis. We will give a dose of IV Pepcid, IV Zofran, GI cocktail, oral Carafate and oral Ativan and reassess. 2100 --labs and imaging reviewed. Normal white blood cell count. Normal electrolytes. Fluvid negative. CT notes mild enteritis but no other acute findings. Patient reassessed and he feels much better and feels comfortable going home. He appears much more relaxed. He denies any pain or nausea at this time. Discussed that I believe his symptoms appear consistent with GERD and possible viral process. Advised to take an [id number] PPI once daily for the next 2 weeks and a prescription for Carafate sent electronically to his pharmacy. Advised to follow-up with his primary care doctor in 1 week for reevaluation and for referral to surgery for symptoms do not improve or worsen. Usual and customary return precautions given prior to discharge. Medical Records Medical records reviewed: Yes I reviewed the patient's medical records. Imaging Data Radiologic Study: Radiologist's impression: CT Abdomen And Pelvis With Contrast Exam date and time: 11/10/2022 7:48 PM Age: 41 years old Clinical indication: Other: Epigastric and llq pain, R/O gastritis TECHNIQUE: Imaging protocol: Computed tomography of the abdomen and pelvis with contrast. Radiation optimization: All CT scans at this facility use at least one of these dose optimization techniques: automated exposure control; mA and/or kV adjustment per patient size (includes targeted exams where dose is matched to clinical indication); or iterative reconstruction. Contrast material: OMNIPAQUE 350; Contrast volume: 100 ml; Contrast route: INTRAVENOUS (IV);? COMPARISON: CT CHEST/ABD/PEL W 04/18/2021 4:56 PM FINDINGS: Mildly limited due to motion artifact Minimal scarring right middle lobe Liver:? Fatty infiltration. No mass. Gallbladder and bile ducts: Normal. No calcified stones. No ductal dilation. Pancreas: Normal. No ductal dilation. Spleen: Normal. No splenomegaly. Adrenal glands: Normal. No mass. Kidneys and ureters: Normal. No hydronephrosis. Stomach and bowel: No obstruction.? Mild mucosal thickening. Appendix: No evidence of appendicitis. Intraperitoneal space: Unremarkable. No free air. No significant fluid collection. Vasculature: Unremarkable. No abdominal aortic aneurysm. Lymph nodes: Unremarkable. No enlarged lymph nodes. Urinary bladder: Unremarkable as visualized. Reproductive: Unremarkable as visualized. Bones/joints:? Degenerative changes at the lumbosacral junction with severe foraminal stenosis No acute fracture. Soft tissues: A small fat-containing right inguinal hernia is noted. IMPRESSION: Nonspecific nonobstructed bowel gas pattern which may represent mild enteritis. ?No focal gastritis detected Lab Data Lab results reviewed: Yes I reviewed the patient's lab results. Labs: Laboratory Tests Range/Units 11/10/22 11/10/22 11/10/22 18:29 18:29 18:30 WBC (4.4-10.8) 10^3/uL 8.31 RBC (4.36-5.78) 10^6/uL 5.01 Hgb (13.5-17.5) g/dL 16.1 Hct (40.0-50.0) % 45.7 MCV (80-95) fL 91 MCH (27.0-33.0) pg 32.1 MCHC (32.0-36.0) % 35.2 RDW (11.8-14.1) % 11.5 L Plt Count (130-400) 10^3/uL 149 MPV (8.0-11.0) fL 11.0 Immature Gran % 0.1 Neutrophils % 60.4 Lymphocytes % 25.9 Monocytes % 5.3 Eosinophils % 7.7 Basophils % 0.6 Nucleated RBC % (0.0-0.3) % 0.0 Absolute Neutrophils (1.2-6.7) 10^3/uL 5.02 Absolute Lymphocytes (1.2-3.4) 10^3/uL 2.15 Absolute Monocytes (0.1-0.8) 10^3/uL 0.44 Absolute Eosinophils (0.0-0.7) 10^3/uL 0.64 Absolute Basophils (0.0-0.2) 10^3/uL 0.05 Sodium (136-145) mmol/L 138 Potassium (3.5-5.1) mmol/L 3.6 Chloride (98-107) mmol/L 103 Carbon Dioxide (21.0-32.0) mmol/L 27.5 Anion Gap (3-11) mmol/L 7.5 BUN (7-18) mg/dL 11 Creatinine (0.70-1.30) mg/dL 1.0 Est GFR (CKD-EPI 2020) (mL/min/1.73m2) 97.58 Glucose (74-106) mg/dL 101 Calcium (8.5-10.1) mg/dL 9.1 Total Bilirubin (0.2-1.0) mg/dL 0.8 AST (15-37) U/L 20 ALT (16-63) U/L 26 Alkaline Phosphatase (46-116) U/L 76 Total Protein (6.4-8.2) g/dL 7.3 Albumin (3.4-5.0) g/dL 4.2 Lipase (16-77) U/L 22 COVID-19 Source Nasopharynx SARS-CoV-2 (PCR) (Negative) Negative Influenza Type A (PCR) (Negative) Negative Influenza Type B (PCR) (Negative) Negative RSV (PCR) (Negative) Negative HPI General Mode of arrival: ambulatory. Date/Time Provider Initiated Documentation: 11/10/22 18:14. Limitations to Documentation: no limitations. Information obtained by: patient. HPI Narrative: Patient is a 41-year-old male with a history of marijuana and tobacco use who presents for epigastric pain for the past week. Patient describes the pain as a constant burning pain that occasionally is worse. He states the pain is currently 4/10 but is 10/10 at its worst. He states aggravating factors include caffeine, smoking and most foods. Patient states he gave up coffee 1 year ago and drinks 2 cups of tea and occasional cup of coffee which she feels makes his symptoms worse. Patient denies any alcohol use. He states he also has been stressed as he has not been sleeping lately. He states he has mainly not been sleeping due to his 's snoring and also the pain waking him up. He states he has used chamomile tea for his pain without relief. Patient also states that he had hemorrhoids recently which have since improved while taking psyllium and probiotics. Patient states he first developed hemorrhoids 1 year ago after a fall off a ladder when he was laid up and mainly immobile. He denies any narcotics at that time. He states he last had a bowel movement this morning which was sticky and thin and runny . He states he has not been eating much over the past few days. He had also admitted to the nurse that he was suffering from a mental health crisis .. He states he has been having trouble sleeping due to my snoring in addition to the pain waking him up. He denies any suicidal or homicidal ideation, auditory or visual hallucinations. States he feels he is at a breaking point secondary to not sleeping recently. Related Data Home Medications Medication Instructions Recorded Confirmed olopatadine 0.2 % eye drops 1 drp ophthalmic (eye) DAILY 03/14/22 11/10/22 (Pataday Once Daily Relief) pramoxine 1 % lotion (Sarna 1 applic topical BID 03/14/22 11/10/22 Sensitive) sucralfate 1 gram tablet (Carafate) 1 gm PO QACHS #14 tabs 11/10/22 Previous Rx's Medication Instructions Recorded sucralfate 1 gram tablet (Carafate) 1 gm PO QACHS #14 tabs 11/10/22 Allergies Allergy/AdvReac Type Severity Reaction Status Date / Time ibuprofen [From Advil] AdvReac Intermediate crampy Verified 11/10/22 18:18 stomach pain acetaminophen [From Tylenol] AdvReac depressive Verified 11/10/22 18:18 thoughts environmental Allergy Uncoded 03/14/22 15:39 General Stated Complaint: Abd Prob DION: 3 Review of Systems All systems reviewed & are unremarkable except as noted in HPI and below Constitutional Constitutional: Reports as per HPI, Denies chills and Denies fever(s) Eyes Eyes: Denies blurry vision ENT Ears, Nose, Mouth, and Throat: Denies dizziness, Denies sore throat and Denies throat swelling Cardiovascular Cardiovascular: Denies chest pain and Denies dyspnea Respiratory Respiratory: Denies cough and Denies dyspnea Gastrointestinal Gastrointestinal: Reports abdominal pain, Denies diarrhea, Reports nausea and Denies vomiting Genitourinary Genitourinary: Denies hematuria and Denies dysuria Musculoskeletal Musculoskeletal: Denies back pain and Denies numbness Integumentary/Breasts Skin/Breast: Denies lesions and Denies rash Neurologic Neurologic: Denies dizziness, Denies localized weakness and Denies numbness Allergic/Immunologic Allergic/Immunologic: Denies throat swelling PFSH All Active Problems (Updated 11/10/22 @ 21:23 by Yany Sarmiento DO) Epigastric abdominal pain (Acute) GERD (gastroesophageal reflux disease) (Chronic) History of bipolar disorder (Acute) Concussion (Acute) Gluten intolerance (Acute) Medical History History of alcohol use disorder Marijuana use Thyroid nodule 03/2021: 1 cm left, [address] 05/2021- US benign appearing nodules, no further f/u needed Surgical History Status post arthroscopic knee surgery 1997- right knee Family History Mother Alcohol abuse Depression Father Alcohol abuse Diabetes Sister No problems noted. Sister No problems noted. Son No problems noted. Son No problems noted. Daughter No problems noted. Daughter No problems noted. Maternal Grandfather , age 91 Bipolar 1 disorder Dementia Paternal Grandfather , age 91 Dementia Maternal Grandmother , age 91 Stroke Smoker Paternal Grandmother , age 91 Diabetes Social History Smoking/Tobacco Use Status: Current every day Tobacco Type: smokeless tobacco Tobacco: How many years used: 2 Smokeless tobacco user: chewing tobacco Quit status: quit date established Second Hand Exposure: Yes Counseling given: provider counseling and counseling >3 minutes Smoking risk assessment performed?: Yes Alcohol Intake: former Drug use: Daily Substance use type: marijuana Caregiver/Support person: Yes Household members: spouse, family and children Housing: house Do you need help understanding health information?: Always Pets and animals: Yes Pets and animals: cat(s) and dog(s) Sexually active: Yes Do you think of yourself as: straight/heterosexual Current gender identity: male What is your relationship status?: How often do you talk on the phone with friends or family?: once per week How often do you get together with friends or relatives?: once per week How often do you attend mormonism or anabaptism services?: 4 or more times per year Do you belong to any clubs or organized social groups?: no Panel score (0-1 are the most socially isolated patients): 2 What type of physical activity do you participate in: weight lifting and running Duration: 15-30 minutes/day Frequency: daily Shital/Holiness: Hoahaoism Special shital needs: No Seatbelt use: always Helmet use: Yes Helmet use: always Drive intox or ride w/intox class b driver: No Do you feel safe at home: Yes Do you feel safe in your relationship?: Yes Exam Const General: cooperative, no acute distress and anxious Orientation: alert, awake and oriented x3 HENMT Head: normal to inspection Face and sinus: normal facial exam Eyes General: appearance normal, both eyes and all related structures Pupils: PERRL EOM: EOM intact bilaterally Neck Neck: normal visual inspection and No submandibular swelling Lymphatic: no lymphadenopathy noted Chest Chest: normal inspection of the chest and no tenderness Resp Effort & Inspection: normal respiratory effort and able to speak in complete sentences Auscultation: clear to auscultation bilaterally Cardio Rate: regular rate Rhythm: regular rhythm GI Inspection: normal to inspection Palpation: soft, not firm, not rigid and tender in the epigastrum and in the LLQ Auscultation: hypoactive bowel sounds Male General Exam: Yes normal external exam Back/Spine/Pelvis Back: no CVA tenderness Thoracic/Lumbar Spine: thoracic and lumbar spine normal to inspection Skin General skin exam: no rashes or lesions noted Neuro General: patient alert, patient awake and patient oriented x3 Cognition: normal cognition Speech: speech normal Motor: muscle tone normal throughout Sensory Exam: no sensory deficits noted Extrem General: normal to inspection, full ROM, capillary refill normal, no calf tenderness bilaterally and no edema Psych Appearance: grossly normal Mental Status: mental status grossly normal Speech and Movement: speech and movement normal Affect: normal affect Course Vital Signs Vital signs: Vital Signs Temperature 98.2 F 11/10/22 17:52 Pulse 71 11/10/22 17:52 Respiratory Rate 16 11/10/22 17:52 Blood Pressure 144/102 H 11/10/22 17:52 Pulse Oximetry 99 11/10/22 17:52 Temperature 98.2 F 11/10/22 17:52 Temperature Source Tympanic 11/10/22 17:52 Pulse 71 11/10/22 17:52 Respiratory Rate 16 11/10/22 17:52 Respiratory Effort Normal 11/10/22 17:59 Blood Pressure 144/102 H 11/10/22 17:52 Blood Pressure Position Sitting 11/10/22 17:52 Pulse Oximetry 99 11/10/22 17:52 Oxygen Delivery Method Room Air 11/10/22 17:52 Oxygen Flow Rate 0 11/10/22 17:52 Pain Level 3 11/10/22 17:52 Lab/Test Results Lab/Test Results: Laboratory Tests Range/Units 11/10/22 11/10/22 18:29 18:29 WBC (4.4-10.8) 10^3/uL 8.31 RBC (4.36-5.78) 10^6/uL 5.01 Hgb (13.5-17.5) g/dL 16.1 Hct (40.0-50.0) % 45.7 MCV (80-95) fL 91 MCH (27.0-33.0) pg 32.1 MCHC (32.0-36.0) % 35.2 RDW (11.8-14.1) % 11.5 L Plt Count (130-400) 10^3/uL 149 MPV (8.0-11.0) fL 11.0 Immature Gran % 0.1 Neutrophils % 60.4 Lymphocytes % 25.9 Monocytes % 5.3 Eosinophils % 7.7 Basophils % 0.6 Nucleated RBC % (0.0-0.3) % 0.0 Absolute Neutrophils (1.2-6.7) 10^3/uL 5.02 Absolute Lymphocytes (1.2-3.4) 10^3/uL 2.15 Absolute Monocytes (0.1-0.8) 10^3/uL 0.44 Absolute Eosinophils (0.0-0.7) 10^3/uL 0.64 Absolute Basophils (0.0-0.2) 10^3/uL 0.05 Sodium (136-145) mmol/L 138 Potassium (3.5-5.1) mmol/L 3.6 Chloride (98-107) mmol/L 103 Carbon Dioxide (21.0-32.0) mmol/L 27.5 Anion Gap (3-11) mmol/L 7.5 BUN (7-18) mg/dL 11 Creatinine (0.70-1.30) mg/dL 1.0 Est GFR (CKD-EPI 2020) (mL/min/1.73m2) 97.58 Glucose (74-106) mg/dL 101 Calcium (8.5-10.1) mg/dL 9.1 Total Bilirubin (0.2-1.0) mg/dL 0.8 AST (15-37) U/L 20 ALT (16-63) U/L 26 Alkaline Phosphatase (46-116) U/L 76 Total Protein (6.4-8.2) g/dL 7.3 Albumin (3.4-5.0) g/dL 4.2 Lipase (16-77) U/L 22 PAWSS Have you Been Recently Intoxicated or Drunk Within the Last 30 days?: No Have you Ever Experienced Previous Episodes of Alcohol Withdrawal?: No Have you ever Experienced Withdrawal Seizures?: No Have you ever Experienced Delirium Tremens(DT)s?: No Have you ever undergone Alcohol Rehabilitation Treatment (i.e, inpt ot outpatient treatment programs)?: No Have you ever Experienced Blackouts?: No Have you ever Combined Alcohol with other Downers within the last 90 days?: No Have you ever Combined Alcohol with any other Substance of Abuse during the last 90 days?: No Positive Blood Alcohol level on Presentation? [PCS.BAL]: No Evidence of Increased Autonomic Activity (i.e. HR>120, tremor, sweating, agitation, nausea)?: No Result: 0
[2022-11-10 19:11] LABS: COVID-19 PCR Negative (Negative); Influenza A PCR Negative (Negative); Influenza B PCR Negative (Negative); RSV PCR Negative (Negative)
[2022-11-10 19:14] LABS: Source Nasopharynx
[2022-11-10] MEDS: Ondansetron 4 MG/2 ML VIAL IVP (19:27)
[2022-11-10] MEDS: Famotidine 20 MG/2 ML VIAL IVP (19:28)
[2022-11-10] MEDS: Sucralfate 1 GM TAB PO (19:28)
[2022-11-10] MEDS: LORazepam 1 MG TAB PO (19:28)
[2022-11-10] MEDS: Normal Saline 1,000 ML 1000 ML IV (19:29)
[2022-11-10] MEDS: Omnipaque 350 MG/ML 100 ML BTL IJ (19:59)
[2022-11-10] MEDS: Normal Saline Flush 10 ML SYR IVP (19:59)
[2022-11-10] MEDS: Normal Saline - Diluent 50 ML VIAL IJ (20:00)
--- NOTE | 2022-11-10 20:16 | DI.VRAD_ITS ---
PROCEDURE INFORMATION: Exam: CT Abdomen And Pelvis With Contrast Exam date and time: 11/10/2022 7:48 PM Age: 41 years old Clinical indication: Other: Epigastric and llq pain, R/O gastritis TECHNIQUE: Imaging protocol: Computed tomography of the abdomen and pelvis with contrast. Radiation optimization: All CT scans at this facility use at least one of these dose optimization techniques: automated exposure control; mA and/or kV adjustment per patient size (includes targeted exams where dose is matched to clinical indication); or iterative reconstruction. Contrast material: OMNIPAQUE 350; Contrast volume: 100 ml; Contrast route: INTRAVENOUS (IV); COMPARISON: CT CHEST/ABD/PEL W 04/18/2021 4:56 PM FINDINGS: Mildly limited due to motion artifact Minimal scarring right middle lobe Liver: Fatty infiltration. No mass. Gallbladder and bile ducts: Normal. No calcified stones. No ductal dilation. Pancreas: Normal. No ductal dilation. Spleen: Normal. No splenomegaly. Adrenal glands: Normal. No mass. Kidneys and ureters: Normal. No hydronephrosis. Stomach and bowel: No obstruction. Mild mucosal thickening. Appendix: No evidence of appendicitis. Intraperitoneal space: Unremarkable. No free air. No significant fluid collection. Vasculature: Unremarkable. No abdominal aortic aneurysm. Lymph nodes: Unremarkable. No enlarged lymph nodes. Urinary bladder: Unremarkable as visualized. Reproductive: Unremarkable as visualized. Bones/joints: Degenerative changes at the lumbosacral junction with severe foraminal stenosis No acute fracture. Soft tissues: A small fat-containing right inguinal hernia is noted. IMPRESSION: Nonspecific nonobstructed bowel gas pattern which may represent mild enteritis. No focal gastritis detected Dictated and Authenticated by: Andre Cisneros MD. Ordering:KAEL Slade MD
[2022-11-10 21:46] VITALS: BP 135/81; PULSE 55; RESP 16; TEMP 36.3; O2SAT 96
[2022-11-10] MEDS: LORazepam 0.5 MG TAB PO (21:50)
== END 2022-11-10 21:51 | disposition home or self-care (01) ==
PROVIDERS: Emergency Provider Physician Assistant; PCP Nurse Practitioner Family
DX: K21.9 Gastro-esophageal reflux disease without esophagitis (principal); K52.9 Noninfective gastroenteritis and colitis, unspecified; F17.200 Nicotine dependence, unspecified, uncomplicated; Z20.822 Contact with and (suspected) exposure to COVID-19
CPT/HCPCS: 80053; 83690; 87637; 96361; 96374; 96375; 99285; 74177; 85025; 99284; J2405; J3490

== ENCOUNTER 2023-02-22 10:09 | Emergency (ER) | payer MEDICAID, SELFPAY ==
--- NOTE | 2023-02-22 10:15 | DI.RAD_ITS ---
Exam(s) XR HAND LT COMPLETE EXAM: XR HAND LT COMPLETE CLINICAL HISTORY: dog bite, pain. TECHNIQUE: 2D digital imaging was performed. COMPARISON: CR,XR XR HAND RT COMPLETE from 04/18/2021 FINDINGS: 3 views No evidence of acute fracture or dislocation. No radiopaque foreign body. No osseous lesions. No r adiographic evidence of osteomyelitis. IMPRESSION: No significant osseous findings. No evidence of foreign body. DATA REPOSITORY: RADIATION DOSE DELIVERED:
--- NOTE | 2023-02-22 10:15 | DI.RAD_ITS ---
Exam(s) XR TIB/FIB LT EXAM: XR TIB/FIB LT CLINICAL HISTORY: dog bite, pain. TECHNIQUE: 2D digital imaging was performed. COMPARISON: CR,XR XR TIB/FIB RT from 04/18/2021 FINDINGS: Four views: No evidence of fracture of the tibial plateau nor elsewhere in the tibia and fibula. Bone density no rmal. No osseous lesions. IMPRESSION: No acute osseous findings in the tibia and fibula. DATA REPOSITORY: RADIATION DOSE DELIVERED:
[2023-02-22 10:18] VITALS: BP 150/78; PULSE 75; RESP 18; TEMP 36.8; O2SAT 99
--- NOTE | 2023-02-22 10:27 | W.ED.GENAD ---
Discharge Plan Disposition Patient Disposition: Home Condition: Stable Discharge Details Clinical Impression: Dog bite of left hand, Dog bite of left lower leg Primary Care Provider: Judie Waldron ED Provider: Tae Lopez Home Meds and New Rx's Prescriptions: New amoxicillin-pot clavulanate 875-125 mg tablet 1 tab PO BID Qty: 14 0RF Continued fluoxetine 20 mg capsule 20 mg PO DAILY Qty: 90 1RF olopatadine [Pataday Once Daily Relief] 0.2 % drops 1 drp ophthalmic (eye) DAILY pramoxine [Sarna Sensitive] 1 % lotion 1 applic topical BID Discharge Instructions Additional Instructions: Your xrays did not show concerning findings the wounds should heal well in 1-2 weeks if you develop severe worsening pain, fevers or yellow/white discharge return to the emergency department Medical Decision Making 42 yo male who is utd on tetanus vaccines (2019) comes in with cc of dog bite. He states he was picking up his kid at a neighbor's house when two dogs were barking and then when he knocked on the door one of them bit his left hand and left leg. Denies falls or other injuries. HE states the dogs are utd on vaccines. He has 4puncture wounds approximately 2mm in diameter on the posterior left mid hand, full rom, mild tenderness of the mid hand, normal sensation and pulses. HE has 5 small puncture wounds approximately 2mm in diameter on the left lateral leg just distal to the knee, full rom of the knee and intact distal sensation. Will proceed with xrays to evaluate for fracture. pt stable, imaging unremarkable, will place on augmentin, return precautions given Differential Diagnosis Differential Diagnosis: dog bite, fracture Imaging Data Radiologic Study: Attestation: I personally reviewed and interpreted this imaging study as follows: Imaging: X-Ray My impression: no acute findings hand xray Radiologic Study #2: Attestation: I personally reviewed and interpreted this imaging study as follows: Imaging: X-Ray My impression: no acute findings leg xray HPI General Mode of arrival: ambulatory. Date/Time Provider Initiated Documentation: 02/22/23 10:12. Limitations to Documentation: no limitations. Information obtained by: patient. History of Present Illness 42 year old M presents to the emergency department with the chief complaint of dog bite, described as moderate, Quality is described as aching, and is localized to the left, upper extremity and lower extremity. Patient reports no radiation. Patient started experiencing this hour(s) (1) and it has been constant. No relieving factors improve symptom(s), No exacerbating factors reported . Patient notes no other symptoms.. Patient did receive the following treatments prior to arrival, NSAID Related Data Home Medications Medication Instructions Recorded Confirmed olopatadine 0.2 % eye drops 1 drp ophthalmic (eye) DAILY 03/14/22 02/22/23 (Pataday Once Daily Relief) pramoxine 1 % lotion (Sarna 1 applic topical BID 03/14/22 02/22/23 Sensitive) fluoxetine 20 mg capsule 20 mg PO DAILY #90 caps 01/05/23 02/22/23 amoxicillin 875 mg-potassium 1 tab PO BID #14 tabs 02/22/23 clavulanate 125 mg tablet Previous Rx's Medication Instructions Recorded fluoxetine 20 mg capsule 20 mg PO DAILY #90 caps 01/05/23 amoxicillin 875 mg-potassium 1 tab PO BID #14 tabs 02/22/23 clavulanate 125 mg tablet Allergies Allergy/AdvReac Type Severity Reaction Status Date / Time ibuprofen [From Advil] AdvReac Intermediate crampy Verified 01/05/23 09:30 stomach pain acetaminophen [From Tylenol] AdvReac depressive Verified 01/05/23 09:30 thoughts environmental Allergy Uncoded 01/05/23 09:30 General Stated Complaint: AnimalBite DION: 4 Review of Systems All systems reviewed & are unremarkable except as noted in HPI and below Constitutional Constitutional: Denies chills, Denies fever(s) and Denies weakness Cardiovascular Cardiovascular: Denies chest pain and Denies dyspnea Respiratory Respiratory: Denies cough and Denies dyspnea Gastrointestinal Gastrointestinal: Denies abdominal pain, Denies nausea and Denies vomiting Integumentary/Breasts Skin/Breast: Denies rash Neurologic Neurologic: Denies weakness PFSH All Active Problems (Updated 02/22/23 @ 10:32 by Tae Lopez MD) Dog bite of left hand (Acute) Dog bite of left lower leg (Acute) Depression (Chronic) History of bipolar disorder (Acute) Concussion (Acute) Gluten intolerance (Acute) Medical History History of alcohol use disorder Marijuana use Thyroid nodule 03/2021: 1 cm left, [address] 05/2021- US benign appearing nodules, no further f/u needed Surgical History Status post arthroscopic knee surgery 1997- right knee Family History Mother Alcohol abuse Depression Father Alcohol abuse Diabetes Sister No problems noted. Sister No problems noted. Son No problems noted. Son No problems noted. Daughter No problems noted. Daughter No problems noted. Maternal Grandfather , age 91 Bipolar 1 disorder Dementia Paternal Grandfather , age 91 Dementia Maternal Grandmother , age 91 Stroke Smoker Paternal Grandmother , age 91 Diabetes Social History (Updated 01/05/23 @ 14:54 by Mady Kramer) Smoking/Tobacco Use Status: Former Tobacco Use tobacco type: smokeless tobacco Quit Date: 08/28/22 Tobacco: How many years used: 15 Smokeless tobacco user: chewing tobacco Second Hand Exposure: Yes Counseling given: provider counseling and counseling >3 minutes Smoking risk assessment performed?: Yes Alcohol Intake: former Drug use: Occasionally Substance use type: marijuana Caregiver/Support person: Yes Household members: spouse and children Housing: house Communication Needs: Corrective Lenses Do you need help understanding health information?: Always Pets and animals: Yes Pets and animals: cat(s) and dog(s) Sexually active: Yes Do you think of yourself as: straight/heterosexual Current gender identity: male What is your relationship status?: How often do you talk on the phone with friends or family?: twice per week How often do you get together with friends or relatives?: once per week How often do you attend christianity or oriental orthodox services?: 4 or more times per year Do you belong to any clubs or organized social groups?: yes Panel score (0-1 are the most socially isolated patients): 4 What type of physical activity do you participate in: walking, bicycling and running Duration: 30-45 minutes/day Frequency: daily Shital/Methodist: Mandaeism Special shital needs: No Seatbelt use: always Helmet use: Yes Helmet use: always Drive intox or ride w/intox 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: No Do you feel safe at home: Yes Do you feel safe in your relationship?: Yes Exam Const General: no acute distress Orientation: alert HENMT Head: normal to inspection Ears: external ears normal General nose exam: external nose normal Mouth: moist mucous membranes Eyes General: appearance normal, both eyes and all related structures Neck Neck: normal visual inspection Resp Effort & Inspection: normal respiratory effort and able to speak in complete sentences Cardio Rate: regular rate Skin General skin exam: no rashes or lesions noted Neuro General: patient alert and patient oriented x3 Extrem General: full ROM and capillary refill normal Psych Mental Status: mental status grossly normal Course Vital Signs Vital signs: Vital Signs Temperature 36.8 C 02/22/23 10:18 Pulse 75 02/22/23 10:18 Respiratory Rate 18 02/22/23 10:18 Blood Pressure 150/78 H 02/22/23 10:18 Pulse Oximetry 99 02/22/23 10:18 Temperature 36.8 C 02/22/23 10:18 Temperature Source Temporal Artery Scan 02/22/23 10:18 Pulse 75 02/22/23 10:18 Respiratory Rate 18 02/22/23 10:18 Blood Pressure 150/78 H 02/22/23 10:18 Blood Pressure Position Sitting 02/22/23 10:18 Pulse Oximetry 99 02/22/23 10:18 Oxygen Delivery Method Room Air 02/22/23 10:18 Oxygen Flow Rate 0 02/22/23 10:18
--- NOTE | 2023-02-22 10:47 | NUR.NOTE ---
Nursing Note: Animal bite report form faxed to factory clerk [employer]; message left on phone; health officer notified of animal bite report.
--- NOTE | 2023-02-22 11:44 | DI.VRAD_ITS ---
PROCEDURE INFORMATION: Exam: XR Left Tibia and Fibula Exam date and time: 02/22/2023 11:18 AM Age: 42 years old Clinical indication: Other: Dog bite, pain TECHNIQUE: Imaging protocol: Radiologic exam of the left tibia and fibula. Views: 2 views. COMPARISON: No relevant prior studies available. FINDINGS: Bones/joints: There is no evidence of acute fracture.There is no evidence of malalignment or dislocation. Soft tissues: Normal. IMPRESSION: There is no evidence of acute fracture.There is no evidence of malalignment or dislocation. Dictated and Authenticated by: Divya Welch MD. Ordering:SHELBY Strong MD
--- NOTE | 2023-02-22 11:45 | DI.VRAD_ITS ---
PROCEDURE INFORMATION: Exam: XR Left Hand Exam date and time: 02/22/2023 11:08 AM Age: 42 years old Clinical indication: Other: Dog bite, pain TECHNIQUE: Imaging protocol: Radiologic exam of the left hand. Views: 3 or more views. COMPARISON: CR XR FINGER LT RING 02/27/2020 5:17 PM FINDINGS: Bones/joints: There is no evidence of acute fracture.There is no evidence of malalignment or dislocation. Soft tissues: Normal. IMPRESSION: There is no evidence of acute fracture.There is no evidence of malalignment or dislocation. Dictated and Authenticated by: Divya Welch MD. Ordering:SHELBY Strong MD
--- NOTE | 2023-02-22 13:20 | NUR.NOTE ---
Nursing Note:Called patient to inform him that with his discharge packet there was another patient's discharge packet as well. Patient agreed to shred other patient's discharge
== END 2023-02-22 12:47 | disposition home or self-care (01) ==
PROVIDERS: Emergency Provider Emergency Medicine; PCP Nurse Practitioner Family
DX: S81.032A Puncture wound without foreign body, left knee, initial encounter (principal); S61.432A Puncture wound without foreign body of left hand, initial encounter; W54.0XXA Bitten by dog, initial encounter
CPT/HCPCS: 99284; 73130; 73590

== ENCOUNTER 2023-04-15 04:32 | Outpatient (CLI) | payer MEDICAID, SELFPAY ==
[2023-04-16 08:39] LABS: HBs Antibody, Quant 3.2 mIU/mL (See Note); Hepatitis B Surface Ab Negative (See Note)
[2023-04-16 13:02] LABS: Measles IgG Antibody Positive (See Note); Mumps Antibody IgG Positive (See Note); Rubella IgG Ab (UVM) Positive (See Note); Varicella IgG Antibody Positive (See Note)
[2023-04-17 15:34] LABS: TB Interpretation Negative (Negative); TB2 Ag minus Nil 0.01 IU/mL
== END 2023-04-15 04:33 | disposition home or self-care (01) ==
LOC: LBO 04:33
PROVIDERS: PCP Nurse Practitioner Family; Visit Provider Nurse Practitioner Family
DX: Z00.00 Encounter for general adult medical examination without abnormal findings (principal)
CPT/HCPCS: 36415; 86706; 86787; 86480; 86735; 86762; 86765

== ENCOUNTER 2023-04-20 14:27 | Outpatient (REF) | payer MEDICAID, SELFPAY ==
--- NOTE | 2023-04-20 13:30 | SKI_PTH ---
PATIENT: Henry Aviles LOC: [facility] U#:[id number] AGE/SX: 42/M ROOM: RE04/20/[address]: Rayray Astorga MD : 1980 BED: DIS: 04/20/2023 SPEC #: [id number] RECD: 04/20/23 18:23 STATUS: LUANN REDawit #: [id number] CLARI: 04/20/23 13:[address]: Rayray Astorga DEPT: Surgical Specimen RECD BY: Abbi Childers ENTERED: 04/20/23 18:23 SP TYPE: ROSALINA ACKERMAN DR: Judie Waldron, NAKITA Tissues: 1 - SKIN BIOPSY(SHAVE/PUNCH) Procedures: IMMUNOPEROXIDASE STAIN SKIN LEVEL 4 Comments: [id number]
== END 2023-04-20 14:28 | disposition home or self-care (01) ==
LOC: LBN 14:27
PROVIDERS: PCP Nurse Practitioner Family; Visit Provider Otolaryngology
DX: D23.111 Other benign neoplasm of skin of right upper eyelid, including canthus (principal); H02.89 Other specified disorders of eyelid
CPT/HCPCS: 88305; 88361

== ENCOUNTER 2023-05-08 09:56 | Emergency (ER) | payer MEDICAID, SELFPAY ==
[2023-05-08 09:59] VITALS: BP 170/87; PULSE 56; RESP 20; TEMP 36.8; O2SAT 99
--- NOTE | 2023-05-08 10:00 | DI.CT_ITS ---
Exam(s) CT HEAD WO EXAM: CT HEAD WO CLINICAL HISTORY: Trauma. TECHNIQUE: Imaging Protocol: Axial computed tomography images with coronal and sagittal reformatted images were created and reviewed COMPARISON: CT CT HEAD CERVICAL SPINE WO from 04/18/2021 FINDINGS: Ventricles and Extra axial spaces: Normal in size and morphology for the patient's age. Hemorrhage: None. Cerebral parenchyma: No evidence of acute infarct or mass. Midline shift: None. Brainstem/Cerebellum: Normal. Calvarium: Normal. Visualized Paranasal sinuses/Mastoids: Clear. Soft Tissues: Unremarkable. IMPRESSION: No acute intracranial process. RADIATION DOSE DELIVERED: 707.52mGy.cm Total DLP DATA REPOSITORY: All CT scans at this facility are submitted to the National Radiology Data Registry (NRDR) Dose Index Registry (DIR) with the [employer] (A[employer]). RADIATION OPTIMIZATION: All CT scans at this facility use at least one of these dose optimization te chniques: automated exposure control; mA and/or kV adjustment per patient size (includes targeted exa ms where dose is matched to clinical indication); or iterative reconstruction.
--- NOTE | 2023-05-08 10:08 | ED.GENADUL_ITS ---
Discharge Plan Disposition Patient Disposition: Home Discharge Details Clinical Impression: Concussion Primary Care Provider: Judie Waldron ED Provider: Rajendra Uribe Home Meds and New Rx's Prescriptions: No Action fluoxetine 20 mg capsule 20 mg PO DAILY Qty: 90 1RF olopatadine [Pataday Once Daily Relief] 0.2 % drops 1 drp ophthalmic (eye) DAILY albuterol sulfate 90 mcg/actuation HFA aerosol inhaler 2 inh inhalation Q6H PRN (Reason: shortness of breath or wheezing) Qty: 18 1RF Rx Instructions: use with spacer (DME) BreatheRite MDI Spacer Spacer See Rx Instructions .ROUTE .MEDSUPPLY Qty: 1 0RF Rx Instructions: As directed Discharge Instructions Instructions: Concussion (ED) Additional Instructions: Rest of the rest of the lower weekend. You may take some Tylenol Motrin for the headache. Your head CT was normal. You are being diagnosed with a concussion Medical Decision Making 42-year-old with history of concussions in the past presents to the emergency department with yet another head trauma. Injury happened yesterday. Patient was tearful earlier today labile. This could be consistent with a frontal contusion. Head CT was negative. Results reviewed with patient HPI General Date/Time Provider Initiated Documentation: 05/08/23 10:08 . HPI Narrative: 42-year-old present to the emergency room for evaluation of head trauma. He states that he was mowing the lawn yesterday in the riding lawnmower that had a roof. He was going up an incline in the front wheels left the ground so he leaned forward so that he would not roll over AAA and hit his top of the head on the roof of the lawn more. He had some nausea this morning. Vomited once. Mild headache. History of concussions in the past. No focal weakness Related Data Home Medications Medication Instructions Recorded Confirmed olopatadine 0.2 % eye drops 1 drp ophthalmic (eye) DAILY 03/14/22 05/08/23 (Pataday Once Daily Relief) fluoxetine 20 mg capsule 20 mg PO DAILY #90 caps 01/05/23 05/08/23 albuterol sulfate 90 mcg/actuation 2 inh inhalation Q6H PRN shortness 04/13/23 05/08/23 aerosol inhaler of breath or wheezing #18 grams inhalational spacing device #1 ea 04/13/23 05/08/23 (BreatheRite MDI Spacer) Previous Rx's Medication Instructions Recorded fluoxetine 20 mg capsule 20 mg PO DAILY #90 caps 01/05/23 albuterol sulfate 90 mcg/actuation 2 inh inhalation Q6H PRN shortness 04/13/23 aerosol inhaler of breath or wheezing #18 grams inhalational spacing device #1 ea 04/13/23 (BreatheRite MDI Spacer) Allergies Allergy/AdvReac Type Severity Reaction Status Date / Time environmental Allergy Uncoded 05/08/23 10:03 General Stated Complaint: HeadInjury DION: 3 Review of Systems Narrative: 10 point review this system is negative unless otherwise stipulated in the HPI PFSH All Active Problems (Updated 05/08/23 @ 11:03 by Rajendra Uribe MD) Depression (Chronic) History of bipolar disorder (Acute) Concussion (Acute) Gluten intolerance (Acute) Medical History History of alcohol use disorder Marijuana use Thyroid nodule 03/2021: 1 cm left, [address] 05/2021- US benign appearing nodules, no further f/u needed Surgical History Status post arthroscopic knee surgery 1997- right knee Family History Mother Alcohol abuse Depression Father Alcohol abuse Diabetes Sister No problems noted. Sister No problems noted. Son No problems noted. Son No problems noted. Daughter No problems noted. Daughter No problems noted. Maternal Grandfather , age 91 Bipolar 1 disorder Dementia Paternal Grandfather , age 91 Dementia Maternal Grandmother , age 91 Stroke Smoker Paternal Grandmother , age 91 Diabetes Social History Smoking/Tobacco Use Status: Former Tobacco Use tobacco type: smokeless tobacco Quit Date: 08/28/22 Tobacco: How many years used: 15 Smokeless tobacco user: chewing tobacco Second Hand Exposure: Yes Counseling given: provider counseling and counseling >3 minutes Smoking risk assessment performed?: Yes Alcohol Intake: former Drug use: Occasionally Substance use type: marijuana Caregiver/Support person: Yes Household members: spouse and children Housing: house Communication Needs: Corrective Lenses Do you need help understanding health information?: Always Pets and animals: Yes Pets and animals: cat(s) and dog(s) Sexually active: Yes Do you think of yourself as: straight/heterosexual Current gender identity: male What is your relationship status?: How often do you talk on the phone with friends or family?: twice per week How often do you get together with friends or relatives?: once per week How often do you attend jain or sabianism services?: 4 or more times per year Do you belong to any clubs or organized social groups?: yes Panel score (0-1 are the most socially isolated patients): 4 What type of physical activity do you participate in: walking, bicycling and running Duration: 30-45 minutes/day Frequency: daily Shital/Methodist: Orthodoxy Special shital needs: No Seatbelt use: always Helmet use: Yes Helmet use: always Drive intox or ride w/intox 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: No Do you feel safe at home: Yes Do you feel safe in your relationship?: Yes Exam Narrative Exam Narrative: Awake alert oriented x 3, no acute distress Sitting in the room with sunglasses on No cephalic atraumatic PERRL EOMI MMM anicteric Supple neck no midline tenderness Normal work of breathing Normal cap refill and pulses Neuro 2-12 grossly intact, normal gait, normal cerebellar function Psych mildly labile otherwise adequate mood and affect Course Vital Signs Vital signs: Vital Signs Temperature 36.8 C 05/08/23 09:59 Pulse 56 L 05/08/23 09:59 Respiratory Rate 20 05/08/23 09:59 Blood Pressure 170/87 H 05/08/23 09:59 Pulse Oximetry 99 05/08/23 09:59 Temperature 36.8 C 05/08/23 09:59 Temperature Source Oral 05/08/23 09:59 Pulse 56 L 05/08/23 09:59 Respiratory Rate 20 05/08/23 09:59 Blood Pressure 170/87 H 05/08/23 09:59 Blood Pressure Position Supine 05/08/23 09:59 Pulse Oximetry 99 05/08/23 09:59 Oxygen Delivery Method Room Air 05/08/23 09:59 Oxygen Flow Rate 0 05/08/23 09:59 Pain Level 6 05/08/23 09:59
== END 2023-05-08 11:15 | disposition home or self-care (01) ==
PROVIDERS: Emergency Provider Emergency Medicine; PCP Nurse Practitioner Family
DX: S06.0X0A Concussion without loss of consciousness, initial encounter (principal); Z87.891 Personal history of nicotine dependence; W22.8XXA Striking against or struck by other objects, initial encounter; Y93.H2 Activity, gardening and landscaping; Y92.017 Garden or yard in single-family (private) house as the place of occurrence of the external cause; Y99.9 Unspecified external cause status
CPT/HCPCS: 99284; 70450; 99283

== ENCOUNTER 2024-01-12 19:08 | Outpatient (CLI) | payer MEDICAID, SELFPAY ==
[2024-01-12 15:49] LABS: HCT 44.3 % (40.0-50.0); HGB 15.7 g/dL (13.5-17.5); MCH 31.6 pg (27.0-33.0); MCHC 35.4 % (32.0-36.0); MCV 89 fL (80-95); MPV 10.8 fL (8.0-11.0); Platelet Count 186 10^3/uL (130-400); RBC 4.97 10^6/uL (4.36-5.78); RDW 11.8 % (11.8-14.1); WBC 6.31 10^3/uL (4.4-10.8)
[2024-01-12 16:23] LABS: Hemoglobin A1C 5.2 % (<5.7)
[2024-01-12 16:48] LABS: ALT 32 U/L (16-63); AST 17 U/L (15-37); Albumin 4.2 g/dL (3.4-5.0); Alkaline Phosphatase 73 U/L (46-116); Anion Gap 9.4 mmol/L (3-11); BUN 15 mg/dL (7-18); Bilirubin, Total 0.5 mg/dL (0.2-1.0); CO2 28.6 mmol/L (21.0-32.0); CREATININE 1.1 mg/dL (0.70-1.30); Chloride 104 mmol/L (98-107); Estimated GFR 85.95 (mL/min/1.73m2); Glucose 92 mg/dL (74-106); Potassium 4.3 mmol/L (3.5-5.1); Sodium 142 mmol/L (136-145); TSH (W/Ref FT4) 1.23 uIU/mL (0.36-3.74); Total Protein 7.7 g/dL (6.4-8.2)
[2024-01-12 17:39] LABS: Calculated LDL 139 mg/dL (<100); Cholesterol 210 mg/dL (<200); HDL Cholesterol 47 mg/dL (40-60); Triglyceride 120 mg/dL (<150)
== END 2024-01-12 19:09 | disposition home or self-care (01) ==
LOC: LBO 19:08
PROVIDERS: PCP Nurse Practitioner Family; Visit Provider Nurse Practitioner Family
DX: Z00.00 Encounter for general adult medical examination without abnormal findings (principal); F32.A Depression, unspecified; E04.1 Nontoxic single thyroid nodule
CPT/HCPCS: 36415; 80053; 80061; 85027; 83036; 84443